=== PATIENT | female | born 1940 | race Caucasian/White ===

== ENCOUNTER 2016-10-25 10:55 | Emergency (ER) | payer MEDICARE ==
--- NOTE | 2016-10-25 12:06 | CT ---
CT BRAIN WITHOUT CONTRAST: History: Fall two days ago with facial trauma. Date: 10-25-16 Comparison: 08-15-15 FINDINGS: Noncontrast enhanced CT images of the brain demonstrate the calvarium to be unremarkable. No evidenc e of calvarial fracture seen. The brain is unremarkable. No evidence of intracranial masses, hemorrhages, strokes or contusions se en. IMPRESSION: Normal CT brain. POS: [facility]
--- NOTE | 2016-10-25 12:17 | CT ---
CT FACIAL BONES: History: Fall, right facial injury. Technique: Axial images were obtained with coronal and sagittal reconstructions. FINDINGS: The frontal, ethmoid, maxillary, and sphenoid sinuses are well aerated. No definite evidence of nasal bone fracture is seen. No significant evidence of facial fractures is seen. The right zygomatic arch appears to be intact. Mandibles also intact. Nasal septum is within n ormal limits. IMPRESSION: Normal maxillofacial CT with no evidence of acute facial fracture seen. POS: [facility]
--- NOTE | 2016-10-25 12:19 | CT ---
CT OF THE CERVICAL SPINE WITHOUT CONTRAST: Comparison: None. History: Patient fell in the yard two days ago with head trauma and neck pain. Loss of consciousness . Comparison: 08-15-15 Technique: Multiple contiguous axial images were obtained in a CT of the cervical spine without cont rast. Sagittal and coronal reformats were performed. FINDINGS: There are mild degenerative changes in the cervical spine. The vertebral bodies demonstrate normal h eight without evidence of fracture or acute subluxation. No prevertebral soft tissue swelling is see n. The posterior facets are well aligned. Normal alignment of the skull base with the cervical spine is seen. IMPRESSION: No evidence of acute osseous abnormality of the cervical spine. POS: [facility]
== END 2016-10-25 12:30 | disposition home or self-care (01) ==
LOC: MADERS 10:55
DX: S06.0X1A Concussion with loss of consciousness of 30 minutes or less, initial encounter (principal); F07.81 Postconcussional syndrome; S00.83XA Contusion of other part of head, initial encounter; T14.8 Other injury of unspecified body region; I25.10 Atherosclerotic heart disease of native coronary artery without angina pectoris; E03.9 Hypothyroidism, unspecified; F41.9 Anxiety disorder, unspecified; F32.9 Major depressive disorder, single episode, unspecified; W01.10XA Fall on same level from slipping, tripping and stumbling with subsequent striking against unspecified object, initial encounter
CPT/HCPCS: 70450; 70486; 72125

== ENCOUNTER 2016-12-08 22:42 | Emergency (ER) | payer MEDICARE ==
[2016-12-09] MEDS ORDERED: Ketorolac Tromethamine 60 MG/2 ML VIAL ONE (00:34)
--- NOTE | 2016-12-09 07:39 | RAD ---
RADIOGRAPH MANDIBLE 3 VIEWS: Date: 12/08/16 HISTORY: 76-year-old female with mandibular pain. FINDINGS: No gross abnormality is identified on the frontal view. There is very poor exposure (severe overexpo sure and severe underexposure) of different portions of the bilateral oblique views. IMPRESSION: Maxillofacial CT is strongly recommended. Essentially nondiagnostic study. POS: [facility]
--- NOTE | 2016-12-09 08:03 | RAD ---
RADIOGRAPH LUMBAR SPINE 2 VIEWS: HISTORY: 76-year-old female with low back pain. FINDINGS: There are five lumbar-type vertebrae. Vertebral body heights are maintained. Degenerative facet dise ase at L4-5 causes a mild Grade I anterolisthesis of L4 on L5. Mild disc space narrowing at several levels, including L4-5. IMPRESSION: 1. Mild Grade I spondylolisthesis at L4-5 due to facet osteoarthrosis. 2. Mild degenerative disc disease at L4-5. [place] [] POS: [facility]
--- NOTE | 2016-12-09 08:05 | RAD ---
RADIOGRAPH LEFT KNEE 4 VIEWS: Date: 12/08/16 HISTORY: 76-year-old female with left knee pain. FINDINGS: Joint spaces are maintained without erosions. Tiny osteophytes at the patellofemoral compartment wit h mild irregularity of joint surface. No joint effusion. No destructive osseous lesion or fracture. IMPRESSION: 1. 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 2. No fracture. POS: [facility]
--- NOTE | 2016-12-09 08:06 | RAD ---
RADIOGRAPH RIGHT KNEE 4 VIEWS: Date: 12/08/16 HISTORY: 76-year-old female with right knee pain. FINDINGS: Irregularity of joint surface and small osteophytes at patellofemoral compartment. Medial and latera l compartment joint spaces are maintained without erosions or osteophytes. No joint effusion. No fra cture, dislocation, or destructive osseous lesion. IMPRESSION: 1. 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 2. No fracture. POS: [facility]
== END 2016-12-09 00:53 | disposition home or self-care (01) ==
LOC: MADERS 22:42
DX: S00.532A Contusion of oral cavity, initial encounter (principal); M25.562 Pain in left knee; M25.561 Pain in right knee; I10 Essential (primary) hypertension; I25.10 Atherosclerotic heart disease of native coronary artery without angina pectoris; E03.9 Hypothyroidism, unspecified; G62.9 Polyneuropathy, unspecified; F41.9 Anxiety disorder, unspecified; F32.9 Major depressive disorder, single episode, unspecified; W01.0XXA Fall on same level from slipping, tripping and stumbling without subsequent striking against object, initial encounter
CPT/HCPCS: 70100; 72100; 96372; J1885

== ENCOUNTER 2017-02-15 11:31 | Emergency (ER) | payer MEDICARE ==
--- NOTE | 2017-02-15 13:11 | RAD ---
LEFT HEEL: HISTORY: Evaluate for foreign body. FINDINGS: Calcaneal spurs are present. No radiopaque foreign bodies are seen. POS: [facility]
== END 2017-02-15 13:00 | disposition home or self-care (01) ==
LOC: MADERS 11:31
DX: L03.116 Cellulitis of left lower limb (principal); I25.10 Atherosclerotic heart disease of native coronary artery without angina pectoris; E03.9 Hypothyroidism, unspecified; G62.9 Polyneuropathy, unspecified; F41.9 Anxiety disorder, unspecified; F32.9 Major depressive disorder, single episode, unspecified; Z79.899 Other long term (current) drug therapy

== ENCOUNTER 2017-07-23 16:01 | Emergency (ER) | payer MEDICARE ==
--- NOTE | 2017-07-23 16:52 | RAD ---
RIGHT SHOULDER 3 VIEWS: Date: 07/23/17 HISTORY: Fall, right shoulder pain. FINDINGS/IMPRESSION: There are degenerative changes in the acromioclavicular joint. No acute fracture or dislocation is id entified. POS: [facility]
[2017-07-23] MEDS ORDERED: Diazepam 5 MG TAB ONE (17:50)
--- NOTE | 2017-07-23 19:01 | CT ---
CT OF THE BRAIN WITHOUT CONTRAST: 07/23/17 COMPARISON: 10/25/16. HISTORY: Fall for two days with head injury and double vision. TECHNIQUE: Multiple contiguous axial images were obtained in a CT of the brain without contrast. FINDINGS: The brain is normal in morphology and attenuation without focal lesions or confluent areas of infarct ion. There is no evidence of hydrocephalus, intracranial hemorrhage or extra-axial fluid collections. The calvarium and overlying soft tissues are unremarkable. The visualized paranasal sinuses and mast oid air cells are well aerated. IMPRESSION: No evidence of acute intracranial abnormality. POS: [facility]
--- NOTE | 2017-07-23 19:05 | CT ---
CT OF THE CERVICAL SPINE WITHOUT CONTRAST: 07/23/17 COMPARISON: 10/25/16. HISTORY: Fall for two days with injury to the neck. Double vision and dizziness. TECHNIQUE: Multiple contiguous axial images were obtained in a CT of the cervical spine without contrast. Sagitt al and coronal reformats were performed. FINDINGS: The vertebral bodies and intervertebral discs demonstrate normal height and alignment without fractur e or subluxation. No prevertebral soft tissue swelling is seen. Posterior facets are well aligned. Normal alignment of the skull base with the cervical spine is seen . IMPRESSION: No evidence of acute osseous abnormality of the cervical spine. POS: [facility]
== END 2017-07-23 17:55 | disposition home or self-care (01) ==
LOC: MADERS 16:01
DX: S70.02XA Contusion of left hip, initial encounter (principal); I25.10 Atherosclerotic heart disease of native coronary artery without angina pectoris; E03.9 Hypothyroidism, unspecified; F41.9 Anxiety disorder, unspecified; F32.9 Major depressive disorder, single episode, unspecified; Z79.899 Other long term (current) drug therapy; W19.XXXA Unspecified fall, initial encounter
CPT/HCPCS: 70450; 72125

== ENCOUNTER 2017-12-02 14:30 | Outpatient (CLI) | payer MEDICARE ==
--- NOTE | 2017-12-02 15:32 | RAD ---
TWO VIEWS CHEST: Comparison: 01-05-15 Indication: Shortness of breath. FINDINGS: Stable bilateral high density nodules are present indicating granulomatous calcifications. There is n o lobar consolidation, effusion, or pneumothorax. Cardiac silhouette is normal in size. IMPRESSION: Stable chest. POS: [facility]
== END 2017-12-02 14:31 | disposition home or self-care (01) ==
LOC: MADRAD 14:30
PROVIDERS: ATTEND Family Medicine
DX: R06.02 Shortness of breath (principal)
CPT/HCPCS: 71046

== ENCOUNTER 2018-04-30 12:26 | Emergency (ER) | payer MEDICARE ==
[2018-04-30] MEDS ORDERED: Nitroglycerin 2% Ointment 1 INCH/1 GM Packet ONE (13:04)
[2018-04-30] MEDS ORDERED: Aspirin 325 MG TAB ONE (13:04)
[2018-04-30 13:15] LABS: ALT (SGPT) 16 U/L (8-55); AST (SGOT) 27 U/L (5-34); Albumin 4.7 g/dL (3.4-4.8); Alkaline Phosphatase 94 U/L (40-150); Anion Gap 16 mmol/L (10-20); BUN (Urea Nitrogen) 16 mg/dL (9.8-20.1); Bilirubin, Total 0.5 mg/dL (0.2-1.2); Calc. Creatinine Clearance 0 mL/min (70-130); Calcium 9.7 mg/dL (7.8-10.44); Carbon Dioxide 24 mmol/L (23-31); Chloride 103 mmol/L (98-107); Estimated GFR-MDRD 70; Globulin 3.8 g/dL (2.4-3.5); Glucose 125 mg/dL (83-110); Potassium 3.8 mmol/L (3.5-5.1); Protein, Total 8.5 g/dL (6.0-8.3); Sodium 139 mmol/L (136-145)
--- NOTE | 2018-04-30 13:34 | RAD ---
PORTABLE CHEST 1 VIEW: Date: 04/30/18 Time: 1252 hours HISTORY: Chest pain. FINDINGS: Comparison made with exam of 12/02/17. The heart size is normal. Evidence of old granulomatous disease is again seen. No focal areas of cons olidation, pneumothoraces, or pleural effusions are identified. IMPRESSION: Stable exam. No acute process. POS: [facility]
[2018-04-30] MEDS ORDERED: Nitroglycerin 0.4 MG TAB 1 EACH ONE (14:12)
[2018-04-30] MEDS ORDERED: Oseltamivir 75 MG CAP ONE (14:12)
[2018-04-30 14:28] LABS: #Basophils 0.1 thou/uL (0.0-0.2); #Eosinphils 0.1 thou/uL (0.0-0.7); #Lymphocytes 2.3 thou/uL (1.20-3.40); #Monocytes 0.4 thou/uL (0.11-0.59); #Neutrophils 4.7 thou/uL (1.40-6.50); %Basophils 1.2 % (0.0-1.0); %Eosinophils 1.1 % (0.0-10.0); %Lymphocytes 30.4 % (21.0-51.0); %Monocytes 5.4 % (0.0-10.0); Hemoglobin 12.8 g/dL (12.0-16.0); Mean Corpuscular HGB CONC 34.2 g/dL (32.0-36.0); Mean Corpuscular Hemoglobin 33.1 pg (27.0-31.0); Mean Corpuscular Volume 96.9 fL (78.0-98.0); Mean Platelet Volume 6.2 fL (7.4-10.4); Platelet Count 267 thou/uL (130-400); Red Blood Cell (RBC) Count 3.86 mill/uL (4.20-5.40); White Blood Cell (WBC) Count 7.6 thou/uL (4.8-10.8)
[2018-04-30] MEDS ORDERED: Labetalol HCl 100 MG/20 ML VIAL ONE (15:11)
== END 2018-04-30 15:40 | disposition short-term general hospital (02) ==
LOC: MADERS 12:26
DX: R07.2 Precordial pain (principal); I16.9 Hypertensive crisis, unspecified; J11.1 Influenza due to unidentified influenza virus with other respiratory manifestations; I25.10 Atherosclerotic heart disease of native coronary artery without angina pectoris; E03.9 Hypothyroidism, unspecified; F41.9 Anxiety disorder, unspecified; F32.9 Major depressive disorder, single episode, unspecified; Z79.899 Other long term (current) drug therapy
CPT/HCPCS: 71045; 80053; 83880; 84484; 85025; 87804; 93005; 96374

== ENCOUNTER 2018-06-05 11:16 | Outpatient (CLI) | payer MEDICARE, OTHER ==
[2018-06-05 12:17] LABS: ALT (SGPT) 10 U/L (8-55); AST (SGOT) 14 U/L (5-34); Albumin 4.1 g/dL (3.4-4.8); Alkaline Phosphatase 79 U/L (40-150); Anion Gap 15 mmol/L (10-20); BUN (Urea Nitrogen) 20 mg/dL (9.8-20.1); Bilirubin, Direct 0.2 mg/dL (0.1-0.3); Bilirubin, Total 0.4 mg/dL (0.2-1.2); Calc. Creatinine Clearance 0 mL/min (70-130); Carbon Dioxide 25 mmol/L (23-31); Cardiac Risk 3.1 (Less than 4.5); Chloride 105 mmol/L (98-107); Cholesterol 187 mg/dl (< 200 Desired); Estimated GFR-MDRD 77; Glucose 84 mg/dL (83-110); HDL Cholesterol 61 mg/dL (>60 Neg Risk); LDL Cholesterol, Calculated 99 mg/dL; Potassium 4.6 mmol/L (3.5-5.1); Sodium 140 mmol/L (136-145); Triglycerides 133 mg/dL (Less than 150)
[2018-06-05 12:25] LABS: Eosinophils 2 % (0-10); Hemoglobin 10.9 g/dL (12.0-16.0); Lymphocytes 40 % (21-51); MDiff Complete? YES; Mean Corpuscular HGB CONC 32.5 g/dL (32.0-36.0); Mean Corpuscular Hemoglobin 32.3 pg (27.0-31.0); Mean Corpuscular Volume 99.3 fL (78.0-98.0); Mean Platelet Volume 6.6 fL (7.4-10.4); Monocytes 8 % (0-10); Neutrophil 39 % (42-75); Platelet Count 199 thou/uL (130-400); Platelet Morphology Comment Appears Adequate; RBC Distribution Width 12.6 % (11.5-14.5); Reactive Lymphocytes 11 % (0-10); Red Blood Cell (RBC) Count 3.37 mill/uL (4.20-5.40); White Blood Cell (WBC) Count 5.6 thou/uL (4.8-10.8)
== END 2018-06-05 11:17 | disposition home or self-care (01) ==
LOC: MADLABBHPM 11:16
PROVIDERS: ATTEND Family Medicine
DX: R26.89 Other abnormalities of gait and mobility (principal); G89.29 Other chronic pain
CPT/HCPCS: 80048; 80061; 80076; 84443; 85025

== ENCOUNTER 2019-01-03 09:50 | Emergency (ER) | payer MEDICARE, OTHER ==
[2019-01-03 10:18] LABS: #Basophils 0.1 thou/uL (0.0-0.2); #Eosinphils 0.1 thou/uL (0.0-0.7); #Lymphocytes 3.3 thou/uL (1.20-3.40); #Monocytes 0.4 thou/uL (0.11-0.59); #Neutrophils 2.9 thou/uL (1.40-6.50); %Basophils 1.6 % (0.0-1.0); %Eosinophils 1.9 % (0.0-10.0); %Monocytes 6.2 % (0.0-10.0); %Neutrophils 42.4 % (42.0-75.0); Hemoglobin 12.3 g/dL (12.0-16.0); Mean Corpuscular HGB CONC 31.7 g/dL (32.0-36.0); Mean Corpuscular Hemoglobin 32.6 pg (27.0-31.0); Mean Corpuscular Volume 102.7 fL (78.0-98.0); Mean Platelet Volume 6.4 fL (7.4-10.4); Platelet Count 215 thou/uL (130-400); RBC Distribution Width 13.2 % (11.5-14.5); Red Blood Cell (RBC) Count 3.79 mill/uL (4.20-5.40); White Blood Cell (WBC) Count 6.8 thou/uL (4.8-10.8)
--- NOTE | 2019-01-03 10:23 | RAD ---
EXAM: Chest one view: HISTORY: Dyspnea COMPARISON: 04/30/2018 FINDINGS: Old granulomatous disease. Heart size: Within normal limits. Lungs: Clear of acute process. No evidence for confluent pneumonia, pleural effusion, acute edema, or pneumothorax, or other signifi cant acute process. IMPRESSION: No significant acute intrathoracic disease. Stable exam.
[2019-01-03 10:39] LABS: ALT (SGPT) 14 U/L (8-55); AST (SGOT) 28 U/L (5-34); Albumin 4.5 g/dL (3.4-4.8); Alkaline Phosphatase 67 U/L (40-110); Anion Gap 18 mmol/L (10-20); BUN (Urea Nitrogen) 15 mg/dL (9.8-20.1); Bilirubin, Total 0.5 mg/dL (0.2-1.2); CK (CPK) 535 U/L (29-168); Calc. Creatinine Clearance 0 mL/min (70-130); Carbon Dioxide 23 mmol/L (23-31); Chloride 102 mmol/L (98-107); Estimated GFR-MDRD 50; Globulin 3.4 g/dL (2.4-3.5); Glucose 88 mg/dL (83-110); Potassium 3.9 mmol/L (3.5-5.1); Protein, Total 7.9 g/dL (6.0-8.3); Sodium 139 mmol/L (136-145)
== END 2019-01-03 13:45 | disposition home or self-care (01) ==
LOC: MADERS 09:50
DX: R06.00 Dyspnea, unspecified (principal); I25.10 Atherosclerotic heart disease of native coronary artery without angina pectoris; E03.9 Hypothyroidism, unspecified; F41.9 Anxiety disorder, unspecified; F32.9 Major depressive disorder, single episode, unspecified; Z79.899 Other long term (current) drug therapy; Z79.891 Long term (current) use of opiate analgesic
CPT/HCPCS: 36415; 71045; 80053; 82550; 83880; 84484; 85025; 85379; 93005; 94760

== ENCOUNTER 2019-01-04 05:21 | Emergency (ER) | payer MEDICARE, OTHER ==
[2019-01-04 06:06] LABS: #Basophils 0.1 thou/uL (0.0-0.2); #Eosinphils 0.1 thou/uL (0.0-0.7); #Monocytes 0.4 thou/uL (0.11-0.59); #Neutrophils 2.5 thou/uL (1.40-6.50); %Basophils 2.1 % (0.0-1.0); %Eosinophils 1.7 % (0.0-10.0); %Lymphocytes 48.4 % (21.0-51.0); %Monocytes 6.3 % (0.0-10.0); %Neutrophils 41.5 % (42.0-75.0); Hemoglobin 11.5 g/dL (12.0-16.0); Mean Corpuscular HGB CONC 31.9 g/dL (32.0-36.0); Mean Corpuscular Hemoglobin 32.9 pg (27.0-31.0); Platelet Count 200 thou/uL (130-400); Red Blood Cell (RBC) Count 3.49 mill/uL (4.20-5.40); White Blood Cell (WBC) Count 6.1 thou/uL (4.8-10.8)
[2019-01-04 06:19] LABS: ALT (SGPT) 13 U/L (8-55); AST (SGOT) 27 U/L (5-34); Albumin 4.4 g/dL (3.4-4.8); Alkaline Phosphatase 59 U/L (40-110); Anion Gap 17 mmol/L (10-20); BUN (Urea Nitrogen) 16 mg/dL (9.8-20.1); Bilirubin, Total 0.5 mg/dL (0.2-1.2); CK (CPK) 584 U/L (29-168); Calc. Creatinine Clearance 0 mL/min (70-130); Calcium 8.8 mg/dL (7.8-10.44); Carbon Dioxide 23 mmol/L (23-31); Chloride 104 mmol/L (98-107); Estimated GFR-MDRD 57; Globulin 2.7 g/dL (2.4-3.5); Glucose 86 mg/dL (83-110); Protein, Total 7.1 g/dL (6.0-8.3); Sodium 140 mmol/L (136-145)
== END 2019-01-04 09:09 | disposition home or self-care (01) ==
LOC: MADERS 05:21
DX: F41.1 Generalized anxiety disorder (principal); I25.10 Atherosclerotic heart disease of native coronary artery without angina pectoris; E03.9 Hypothyroidism, unspecified; F41.9 Anxiety disorder, unspecified; F32.9 Major depressive disorder, single episode, unspecified; Z79.899 Other long term (current) drug therapy; Z79.891 Long term (current) use of opiate analgesic
CPT/HCPCS: 36415; 80053; 82550; 84484; 85025; 93005

== ENCOUNTER 2019-09-25 00:41 | Emergency (ER) | payer MEDICARE, OTHER ==
[2019-09-25] MEDS ORDERED: Nitroglycerin 2% Ointment 1 INCH/1 GM Packet ONE (01:20)
[2019-09-25] MEDS ORDERED: Aspirin Chewable 81 MG TAB ONE (01:20)
[2019-09-25 01:27] LABS: #Basophils 0.1 thou/uL (0.0-0.2); #Eosinphils 0.1 thou/uL (0.0-0.7); #Lymphocytes 3.6 thou/uL (1.20-3.40); #Monocytes 0.6 thou/uL (0.11-0.59); #Neutrophils 3.6 thou/uL (1.40-6.50); %Basophils 1.9 % (0.0-1.0); %Eosinophils 1.3 % (0.0-10.0); %Lymphocytes 44.2 % (21.0-51.0); %Monocytes 7.7 % (0.0-10.0); Hemoglobin 11.8 g/dL (12.0-16.0); Mean Corpuscular HGB CONC 32.4 g/dL (32.0-36.0); Mean Corpuscular Hemoglobin 30.4 pg (27.0-31.0); Mean Corpuscular Volume 93.6 fL (78.0-98.0); Mean Platelet Volume 7.1 fL (7.4-10.4); Platelet Count 213 thou/uL (130-400); RBC Distribution Width 11.8 % (11.5-14.5)
[2019-09-25 01:39] LABS: ALT (SGPT) 12 U/L (8-55); AST (SGOT) 15 U/L (5-34); Albumin 4.1 g/dL (3.4-4.8); Alkaline Phosphatase 90 U/L (40-110); Anion Gap 14 mmol/L (10-20); BUN (Urea Nitrogen) 17 mg/dL (9.8-20.1); Bilirubin, Total 0.4 mg/dL (0.2-1.2); Calc. Creatinine Clearance 0 mL/min (70-130); Calcium 8.9 mg/dL (7.8-10.44); Carbon Dioxide 23 mmol/L (23-31); Chloride 106 mmol/L (98-107); Estimated GFR-MDRD 79; Globulin 3.2 g/dL (2.4-3.5); Glucose 103 mg/dL (83-110); Potassium 3.9 mmol/L (3.5-5.1); Protein, Total 7.3 g/dL (6.0-8.3); Sodium 139 mmol/L (136-145)
--- NOTE | 2019-09-25 07:48 | RAD ---
RADIOGRAPH CHEST 1 VIEW: DATE: 09/25/2019 HISTORY: 79-year-old female with dyspnea FINDINGS: There are no airspace densities, pulmonary edema, pneumothorax, or cardiomegaly. The lateral costophr enic angles are sharp. Several bilateral calcified pulmonary granulomata indicating old (inactive) granulomatous disease. No interval change since 01/03/2019. IMPRESSION: No acute cardiopulmonary findings.
== END 2019-09-25 03:21 | disposition short-term general hospital (02) ==
LOC: MADERS 00:41
DX: I20.0 Unstable angina (principal); I10 Essential (primary) hypertension; E03.9 Hypothyroidism, unspecified; F41.9 Anxiety disorder, unspecified; F32.9 Major depressive disorder, single episode, unspecified; Z79.899 Other long term (current) drug therapy
CPT/HCPCS: 71045; 80053; 84484; 85025; 93005

== ENCOUNTER 2019-12-06 09:35 | Emergency (ER) | payer MEDICARE, OTHER ==
[2019-12-06 10:22] LABS: #Basophils 0.1 thou/uL (0.0-0.2); #Eosinphils 0.1 thou/uL (0.0-0.7); #Lymphocytes 1.8 thou/uL (1.20-3.40); #Monocytes 0.5 thou/uL (0.11-0.59); #Neutrophils 4.8 thou/uL (1.40-6.50); %Basophils 1.2 % (0.0-1.0); %Lymphocytes 25.1 % (21.0-51.0); %Monocytes 6.7 % (0.0-10.0); Hemoglobin 12.2 g/dL (12.0-16.0); Mean Corpuscular Hemoglobin 31.7 pg (27.0-31.0); Mean Corpuscular Volume 93.2 fL (78.0-98.0); Mean Platelet Volume 6.9 fL (7.4-10.4); Platelet Count 235 thou/uL (130-400); RBC Distribution Width 12.6 % (11.5-14.5); Red Blood Cell (RBC) Count 3.85 mill/uL (4.20-5.40); White Blood Cell (WBC) Count 7.3 thou/uL (4.8-10.8)
[2019-12-06 10:33] LABS: ALT (SGPT) 11 U/L (8-55); AST (SGOT) 23 U/L (5-34); Albumin 4.1 g/dL (3.4-4.8); Alkaline Phosphatase 89 U/L (40-110); Anion Gap 19 mmol/L (10-20); BUN (Urea Nitrogen) 19 mg/dL (9.8-20.1); Bilirubin, Total 0.6 mg/dL (0.2-1.2); Calc. Creatinine Clearance 0 mL/min (70-130); Calcium 9.4 mg/dL (7.8-10.44); Carbon Dioxide 21 mmol/L (23-31); Chloride 104 mmol/L (98-107); Estimated GFR-MDRD 71; Globulin 3.6 g/dL (2.4-3.5); Glucose 113 mg/dL (83-110); Potassium 4.4 mmol/L (3.5-5.1); Protein, Total 7.7 g/dL (6.0-8.3); Sodium 140 mmol/L (136-145)
[2019-12-06 11:15] LABS: Bilirubin Negative (Negative); Blood, Urine Moderate (Negative); Glucose, Urine (Dipstick) Negative (Negative); Ketone, Urine 15 mg/dL (Negative); Leukocyte Trace (Negative); Nitrite Negative (Negative); Protein, Urine (Dipstick) Negative (Neg-Trace); Specific Gravity, Urine 1.015 (1.005-1.030); Urobilinogen 0.2 mg/dL (Less than 2)
[2019-12-06 11:16] LABS: Clarity Hazy (Clear)
[2019-12-06 11:18] LABS: Bacteria/HPF Rare-Few HPF (None Seen); WBC/HPF 0-3 HPF (0-3)
[2019-12-06 11:19] LABS: Calcium Oxalate Crystals Rare HPF (None Seen)
== END 2019-12-06 12:11 | disposition home or self-care (01) ==
LOC: MADERS 09:35
DX: B02.9 Zoster without complications (principal); I25.10 Atherosclerotic heart disease of native coronary artery without angina pectoris; E03.9 Hypothyroidism, unspecified; F41.9 Anxiety disorder, unspecified; F32.9 Major depressive disorder, single episode, unspecified; Z79.899 Other long term (current) drug therapy
CPT/HCPCS: 80053; 81003; 81015; 85025; 99283

== ENCOUNTER 2020-06-04 09:56 | Emergency (ER) | payer MEDICARE, OTHER ==
[2020-06-04] MEDS ORDERED: Lidocaine 1% 20 ML MDV ONE (10:15)
[2020-06-04] MEDS ORDERED: Acetaminophen 325 MG TAB ONE (11:08)
[2020-06-04] MEDS ORDERED: Acetaminophen/Codeine 30-300mg Tablet ONE (11:08)
== END 2020-06-04 11:30 | disposition home or self-care (01) ==
LOC: MADERS 09:56
DX: S01.81XA Laceration without foreign body of other part of head, initial encounter (principal); S80.211A Abrasion, right knee, initial encounter; I25.10 Atherosclerotic heart disease of native coronary artery without angina pectoris; E03.9 Hypothyroidism, unspecified; Z79.899 Other long term (current) drug therapy; W01.0XXA Fall on same level from slipping, tripping and stumbling without subsequent striking against object, initial encounter
CPT/HCPCS: 12011; 70450

== ENCOUNTER 2020-08-13 09:32 | Emergency (ER) | payer MEDICARE ==
[2020-08-13 10:59] LABS: Hemoglobin 11.3 g/dL (12.0-16.0); Manual Diff?? NO; Mean Corpuscular HGB CONC 31.2 g/dL (32.0-36.0); Mean Corpuscular Hemoglobin 30.5 pg (27.0-31.0); Mean Platelet Volume 7.4 fL (7.4-10.4); Platelet Count 183 thou/uL (130-400); RBC Distribution Width 11.7 % (11.5-14.5); Red Blood Cell (RBC) Count 3.71 mill/uL (4.20-5.40)
[2020-08-13 11:00] LABS: #Basophils 0.1 thou/uL (0.0-0.2); #Eosinphils 0.1 thou/uL (0.0-0.7); #Lymphocytes 2.4 thou/uL (1.20-3.40); #Monocytes 0.6 thou/uL (0.11-0.59); #Neutrophils 3.9 thou/uL (1.40-6.50); %Eosinophils 1.8 % (0.0-10.0); %Lymphocytes 33.8 % (21.0-51.0); %Monocytes 8.3 % (0.0-10.0); %Neutrophils 55.2 % (42.0-75.0)
[2020-08-13 11:06] LABS: ALT (SGPT) 10 U/L (8-55); AST (SGOT) 13 U/L (5-34); Albumin 3.9 g/dL (3.4-4.8); Alkaline Phosphatase 97 U/L (40-110); Anion Gap 16 mmol/L (10-20); BUN (Urea Nitrogen) 23 mg/dL (9.8-20.1); Bilirubin, Total 0.2 mg/dL (0.2-1.2); CK (CPK) 72 U/L (29-168); Calc. Creatinine Clearance 0 mL/min (70-130); Carbon Dioxide 23 mmol/L (23-31); Chloride 107 mmol/L (98-107); Globulin 3.1 g/dL (2.4-3.5); Glucose 114 mg/dL (83-110); Potassium 4.7 mmol/L (3.5-5.1); Sodium 141 mmol/L (136-145)
[2020-08-13 11:23] LABS: CKMB 3.1 ng/mL (0-6.6)
[2020-08-13] MEDS ORDERED: Aspirin Chewable 81 MG TAB ONE (11:31)
[2020-08-13] MEDS ORDERED: Nitroglycerin 0.4 MG TAB 1 EACH ONE (11:31)
[2020-08-13] MEDS ORDERED: Sodium Chloride 0.9% 1,000 ML ONE (12:12)
[2020-08-13] MEDS ORDERED: Morphine 2 MG/ML VIAL ONE (12:12)
[2020-08-13 16:03] LABS: CKMB 8.9 ng/mL (0-6.6)
== END 2020-08-13 15:30 | disposition short-term general hospital (02) ==
LOC: MADERS 09:32
DX: T60.91XA Toxic effect of unspecified pesticide, accidental (unintentional), initial encounter (principal); I21.4 Non-ST elevation (NSTEMI) myocardial infarction; I25.10 Atherosclerotic heart disease of native coronary artery without angina pectoris; E03.9 Hypothyroidism, unspecified; G62.9 Polyneuropathy, unspecified; Z79.899 Other long term (current) drug therapy
CPT/HCPCS: 36415; 71045; 80053; 82550; 82553; 84484; 85025; 93005; 94640; 94760; 96374; J2270; J7050; J7612

== ENCOUNTER 2021-09-04 21:56 | Emergency (ER) | payer MEDICARE ==
[2021-09-04 23:01] LABS: #Basophils 0.1 thou/uL (0.0-0.2); #Lymphocytes 1.4 thou/uL (1.20-3.40); #Monocytes 0.5 thou/uL (0.11-0.59); #Neutrophils 1.9 thou/uL (1.40-6.50); %Basophils 1.6 % (0.0-1.0); %Eosinophils 0.2 % (0.0-10.0); %Lymphocytes 36.4 % (21.0-51.0); %Monocytes 12.1 % (0.0-10.0); %Neutrophils 49.7 % (42.0-75.0); Hemoglobin 13.3 g/dL (12.0-16.0); Mean Corpuscular HGB CONC 34.7 g/dL (32.0-36.0); Mean Corpuscular Hemoglobin 32.8 pg (27.0-31.0); Mean Corpuscular Volume 94.5 fL (78.0-98.0); Mean Platelet Volume 7.7 fL (7.4-10.4); Platelet Count 157 thou/uL (130-400); Red Blood Cell (RBC) Count 4.07 mill/uL (4.20-5.40); White Blood Cell (WBC) Count 3.9 thou/uL (4.8-10.8)
[2021-09-04] MEDS ORDERED: Ondansetron ODT 4 MG TAB ONE (23:03)
[2021-09-04] MEDS ORDERED: Meclizine HCl 25 MG TAB ONE (23:03)
[2021-09-04 23:23] LABS: ALT (SGPT) 25 U/L (8-55); AST (SGOT) 53 U/L (5-34); Albumin 4.3 g/dL (3.4-4.8); Alkaline Phosphatase 93 U/L (40-110); Anion Gap 15 mmol/L (10-20); BUN (Urea Nitrogen) 27 mg/dL (9.8-20.1); Bilirubin, Total 0.4 mg/dL (0.2-1.2); Calc. Creatinine Clearance 0 mL/min (70-130); Calcium 8.7 mg/dL (7.8-10.44); Carbon Dioxide 23 mmol/L (23-31); Chloride 104 mmol/L (98-107); Estimated GFR 56; Globulin 3.1 g/dL (2.4-3.5); Glucose 92 mg/dL (83-110); Magnesium 2.1 mg/dL (1.6-2.6); Potassium 4.1 mmol/L (3.5-5.1); Protein, Total 7.4 g/dL (5.8-8.1); Sodium 138 mmol/L (136-145)
[2021-09-05 00:45] LABS: Bilirubin Negative (Negative); Blood, Urine Negative (Negative); Clarity Clear (Clear); Glucose, Urine (Dipstick) Negative (Negative); Ketone, Urine Trace mg/dL (Negative); Leukocyte Negative (Negative); Nitrite Negative (Negative); Protein, Urine (Dipstick) 30 mg/dL (Neg-Trace); Urobilinogen 0.2 mg/dL (Less than 2); pH, Urine 5.5 (5.0-9.0)
[2021-09-05 00:47] LABS: Specific Gravity, Urine 1.027 (1.002-1.036)
[2021-09-05 00:51] LABS: SARS-CoV-2 NAA Rapid Test DETECTED (NotDetected)
[2021-09-05 01:09] LABS: RBC/HPF 0-3 HPF (0-3); Squamous Epithelial 0-3 HPF (0-3); Transitional Epithelial 0-3 HPF (None Seen)
== END 2021-09-05 01:10 | disposition home or self-care (01) ==
LOC: MADERS 21:56
DX: U07.1 COVID-19 (principal); E03.9 Hypothyroidism, unspecified; Z79.899 Other long term (current) drug therapy
CPT/HCPCS: 51701; 70450; 71045; 80053; 81003; 81015; 83735; 83880; 84484; 85025; 93005; Q0162; U0002

== ENCOUNTER 2021-11-10 19:56 | Emergency (ER) | payer MEDICARE, OTHER ==
[~2021-11-10 19:56] MED LIST: Sodium Chloride 0.9% 500 ML BAG ONE
[2021-11-10 21:01] LABS: #Basophils 0.1 thou/uL (0.0-0.2); #Eosinphils 0.2 thou/uL (0.0-0.7); #Lymphocytes 2.1 thou/uL (1.20-3.40); #Monocytes 0.5 thou/uL (0.11-0.59); #Neutrophils 3.1 thou/uL (1.40-6.50); %Basophils 1.3 % (0.0-1.0); %Eosinophils 3.1 % (0.0-10.0); %Monocytes 7.6 % (0.0-10.0); Hemoglobin 11.9 g/dL (12.0-16.0); Mean Corpuscular HGB CONC 32.4 g/dL (32.0-36.0); Mean Corpuscular Hemoglobin 32.7 pg (27.0-31.0); Mean Corpuscular Volume 100.8 fL (78.0-98.0); Mean Platelet Volume 7.7 fL (7.4-10.4); Platelet Count 215 thou/uL (130-400); RBC Distribution Width 13.5 % (11.5-14.5); Red Blood Cell (RBC) Count 3.65 mill/uL (4.20-5.40); White Blood Cell (WBC) Count 5.9 thou/uL (4.8-10.8)
[2021-11-10 21:06] LABS: Bilirubin Negative (Negative); Blood, Urine Negative (Negative); Glucose, Urine (Dipstick) Negative (Negative); Ketone, Urine Negative (Negative); Leukocyte Trace (Negative); Nitrite Negative (Negative); Protein, Urine (Dipstick) Negative (Neg-Trace); Urobilinogen 0.2 mg/dL (Less than 2); pH, Urine 5.5 (5.0-9.0)
[2021-11-10 21:13] LABS: Clarity Hazy (Clear)
[2021-11-10 21:14] LABS: Bacteria/HPF 2+ HPF (None Seen); Calcium Oxalate Crystals Rare HPF (None Seen); RBC/HPF 0-3 HPF (0-3); Specific Gravity, Urine 1.027 (1.002-1.036); Squamous Epithelial 0-3 HPF (0-3); Transitional Epithelial 0-3 HPF (None Seen); WBC/HPF Greater Than 50 HPF (0-3)
[2021-11-10 21:23] LABS: ALT (SGPT) 10 U/L (8-55); AST (SGOT) 21 U/L (5-34); Albumin 4.5 g/dL (3.4-4.8); Alkaline Phosphatase 78 U/L (40-110); Anion Gap 16 mmol/L (10-20); BUN (Urea Nitrogen) 23 mg/dL (9.8-20.1); Bilirubin, Total 0.4 mg/dL (0.2-1.2); Calc. Creatinine Clearance 0 mL/min (70-130); Calcium 9.9 mg/dL (7.8-10.44); Carbon Dioxide 22 mmol/L (23-31); Chloride 106 mmol/L (98-107); Estimated GFR 62; Globulin 3.5 g/dL (2.4-3.5); Glucose 94 mg/dL (83-110); Potassium 3.8 mmol/L (3.5-5.1); Sodium 140 mmol/L (136-145)
[2021-11-10 21:46] LABS: CKMB 4.3 ng/mL (0-6.6)
[2021-11-10] MEDS ORDERED: cefTRIAXone\\ROCEPHIN 1 GM VIAL ONE (22:10)
== END 2021-11-10 23:00 | disposition short-term general hospital (02) ==
LOC: MADERS 19:56
DX: R55 Syncope and collapse (principal); E03.9 Hypothyroidism, unspecified; N39.0 Urinary tract infection, site not specified; R77.8 Other specified abnormalities of plasma proteins; R29.704 NIHSS score 4; I49.1 Atrial premature depolarization; F03.90 Unspecified dementia, unspecified severity, without behavioral disturbance, psychotic disturbance, mood disturbance, and anxiety; I25.10 Atherosclerotic heart disease of native coronary artery without angina pectoris; I25.2 Old myocardial infarction; G62.9 Polyneuropathy, unspecified; Z86.73 Personal history of transient ischemic attack (TIA), and cerebral infarction without residual deficits; Z95.5 Presence of coronary angioplasty implant and graft; Z79.82 Long term (current) use of aspirin; Z79.899 Other long term (current) drug therapy
CPT/HCPCS: 51701; 70450; 71045; 72125; 80053; 81003; 81015; 82553; 83605; 84443; 84484; 85025; 85379; 87086; 93005; 94760; 96365; J0696; J7030